=== PATIENT | female | born 1990 | race Caucasian/White ===

== ENCOUNTER 2021-07-15 07:46 | Emergency (ER) | payer OTHER, SELFPAY ==
--- NOTE | ~2021-07-15 | CT_ITS ---
EXAMINATION: CTA brain carotid DATE: 07/15/2021 09:10 INDICATION: Right-sided headache TECHNIQUE: Computed tomographic angiography (CTA) of the head was performed without and with 100 mL O mnipaque-350 intravenous contrast. CTA of the neck was performed with intravenous contrast. The dose- length product was 1529.92 mGy-cm. Maximum intensity projection and volume rendered 3D-reconstruction s were created by the technologist on a separate workstation. Automated exposure control and iterativ e reconstruction technique were employed. COMPARISON: None. FINDINGS: HEAD CTA: There is no intracranial hemorrhage, acute infarction, or abnormal mass lesion. The ventric les are normal. There is no abnormal mass effect or midline shift. The alfredo-white matter differentiat ion is normal. The basal cisterns are patent. The orbits are normal. The paranasal sinuses, mastoids and calvarium are normal. There is no significant stenosis of the basilar artery or posterior cerebral arteries. There is no si gnificant stenosis of the intracranial internal carotid arteries or the anterior or middle cerebral a rteries. The anterior communicating artery and right posterior communicating artery is normal. A left posterior communicating arteries hypoplastic There is no aneurysm. NECK CTA: The thyroid gland is unremarkable. The submandibular and parotid glands are symmetric. Ther e is no lymphadenopathy. There are no masses identified. The airway is unremarkable. There are no oss eous abnormalities. The superior mediastinum is unremarkable. There is 0% stenosis of the proximal right internal carotid artery relative to normal distal artery l umen diameter (NASCET criteria). There is 0% stenosis of the proximal left internal carotid artery re lative to normal distal artery lumen diameter. IMPRESSION: 1. No acute intracranial abnormality. Unremarkable head CTA. 2. 0% stenosis of the proximal right internal carotid artery relative to normal distal artery lumen d iameter (NASCET criteria). 3. 0% stenosis of the proximal left internal carotid artery relative to normal distal artery lumen di ameter. Reviewed, dictated and finalized at location A. IMPRESSION: 1. No acute intracranial abnormality. Unremarkable head CTA. 2. 0% stenosis of the proximal right internal carotid artery relative to normal distal artery lumen diameter (NASCET criteria). 3. 0% stenosis of the proximal left internal carotid artery relative to normal distal artery lumen diameter.
[2021-07-15 07:51] VITALS: BP 125/83; PULSE 71; RESP 20; TEMP 36.7; O2SAT 98
[2021-07-15 07:53] VITALS: BP 125/83; PULSE 86; RESP 18; O2SAT 99
--- NOTE | 2021-07-15 07:59 | ED.HA ---
HPI - Headache General Chief Complaint: Headache Stated Complaint: headache x5 days Time Seen by Provider: 07/15/21 07:49 Source: RN notes reviewed History of Present Illness HPI Narrative: Patient presents emergency department from home for headache. Patient states that headache initially began approximately 5 days ago. Patient states that the headache was initially intermittent but is been constant over the past 2 days pain is located over the right frontal forehead into the right bapt[place] and does not radiate described as aching in nature there is no pain anywhere else in the head nothing makes the pain better or worse she states she did take Tylenol for the pain this morning she denies any fevers or chills, vision changes, ear pain, rhinorrhea sore throat chest pain shortness of breath nausea vomiting or any other symptoms patient did receive her second [place] vaccination the day before the headache started Related Data Home Medications Medication Instructions Recorded Confirmed spironolactone 50 mg PO DAILY 07/15/21 07/15/21 Allergies Allergy/AdvReac Type Severity Reaction Status Date / Time clarithromycin Allergy Unknown Unknown Verified 07/15/21 07:53 clindamycin Allergy Unknown Unknown Verified 07/15/21 07:53 erythromycin base Allergy Unknown Unknown Verified 07/15/21 07:53 Sulfa (Sulfonamide Allergy Unknown Unknown Verified 07/15/21 07:53 Antibiotics) Review of Systems Review of Systems: Gen.: Denies fevers or chills Eyes: Denies eye pain or visual change ENT: Denies congestion Respiratory: Denies shortness of breath or cough CV: Denies chest pain or palpitations GI: Denies abdominal pain nausea, emesis or diarrhea Musculoskeletal: Denies back pain or muscle pain Neuro: See HPI Skin: Denies rash Except as documented, all other systems reviewed and negative [facility] Past Medical History Medical History (Updated 07/15/21 @ 11:51 by Sourav Gonzalez DO) Patient denies significant medical history Family History Family History (Updated 06/17/18 @ 14:52 by DOCTOR UNKNOWN) Grandparent Diabetes mellitus Acute myocardial infarction Social History Social History Smoking status: Never smoker Alcohol intake: current Exam Narrative: APPEARANCE: No acute distress, nontoxic, resting in bed HEENT: Normocephalic, atraumatic, OMM, TMs clear bilaterally EYES: PERRL, EOMI NECK: Supple, nontender, full range of motion without pain, no meningismus RESPIRATORY: No respiratory distress, clear to auscultation bilaterally with no rhonchi wheezing or rales CARDIOVASCULAR: RRR s murmur ABDOMINAL: Soft, nontender, nondistended MUSCULOSKELETAL: Moves all extremities. No clubbing, cyanosis or edema. NEURO: A and O ?4, following commands, speech normal, no facial droop,muscle strength 5 out of 5 bilateral upper and lower extremities SKIN:: Warm, dry. Normal Color PSYCHIATRIC: Normal affect/mood Course Course Emergency Course: Patient still has headache following Toradol she taken Tylenol home will give small amount of morphine States headache is greatly improved at this time ready for discharge Discussed with patient results of workup and diagnosis. Discussed need for follow-up with primary care, proper use of medication, and reasons to return to the emergency department. Patient understands and agrees to current treatment plan Vital Signs Vital signs: Vital Signs Temperature 98.0 F 07/15/21 07:51 Pulse Rate 71 07/15/21 07:51 Respiratory Rate 20 07/15/21 07:51 Blood Pressure 125/83 07/15/21 07:51 Pulse Oximetry 98 07/15/21 07:51 Temperature 98.0 F 07/15/21 07:51 Pulse Rate 60 07/15/21 10:57 Respiratory Rate 20 07/15/21 10:57 Blood Pressure 123/92 H 07/15/21 10:57 Pulse Oximetry 100 07/15/21 10:57 MDM - Headache MDM Narrative Medical decision making narrative: Patient's headache was not sudden or maximal in onset.
[2021-07-15] MEDS: KETOROLAC 30 MG/ML VIAL (*BKC) IV PUSH (08:11)
[2021-07-15] MEDS: SODIUM CHLORIDE 0.9% IV 1,000 ML 999 ML IV CONT ×2 (08:11→10:29)
[2021-07-15 08:19] LABS: Basophils Percent Auto 0.7 % (0.2-1.2); Eosinophils Absolute Auto 0.2 K/mm3 (0-0.3); Eosinophils Percent Auto 3.4 % (0-4.4); Hematocrit 37.7 % (37.0-47.0); Hemoglobin 12.6 g/dL (12.0-15.0); Immature Granulocyte Absolute 0.01 K/mm3 (0.00-0.031); Immature Granulocyte Percent A 0.2 % (0-0.5); Lymphocytes Absolute Auto 2.57 K/mm3 (0.9-3.2); Lymphocytes Percent Auto 44.2 % (18.3-44.2); Mean Corpuscular HGB Conc 33.4 g/dl (32-36); Mean Corpuscular Hemoglobin 30.7 pg (26-34); Mean Corpuscular Volume 91.7 fl (80-100); Mean Platelet Volume 9.5 fl (7.4-10.4); Monocytes Absolute Auto 0.3 K/mm3 (0.1-0.6); Monocytes Percent Auto 5.5 % (2.6-8.5); Neutrophils Absolute Auto 2.7 K/mm3 (1.3-6.7); Platelet Count Result 215 k/mm3 (150-375); Red Blood Count 4.11 M/mm3 (4.2-5.4); Red Cell Distribution Width 11.7 % (11.5-14.5); White Blood Count 5.8 K/mm3 (4.5-10.0)
[2021-07-15 08:30] LABS: INR 0.9; Partial Thromboplastin Time 22.7 SECONDS (22.3-36.8); Prothrombin Time 12.5 Seconds (11.1-14.7)
[2021-07-15 08:33] LABS: Alanine Aminotransferase 16 U/L (4-35); Albumin Level 4.2 g/dL (3.5-5.1); Alkaline Phosphatase 36 U/L (38-126); Anion Gap 9 mmol/L (8-16); Aspartate Amino Transferase 22 U/L (14-36); Bilirubin,Total 0.6 mg/dL (0.2-1.3); Blood Urea Nitrogen 8 mg/dL (7-17); Calcium 8.8 mg/dL (8.4-10.2); Carbon Dioxide 26 mmol/L (22-30); Chloride 104 mmol/L (98-107); Estimated CRCL calculation 128 ml/min; Estimated Glomerular Filt Rate > 60; Glucose 90 mg/dL (65-110); Potassium 4.1 mmol/L (3.4-5.0); Sodium 139 mmol/L (137-145)
[2021-07-15 08:43] VITALS: BP 108/69; PULSE 60; RESP 20; O2SAT 100
[2021-07-15] MEDS: MORPHINE SULFATE (*CRX) 2 MG/ML INJ IV PUSH (10:30)
[2021-07-15] MEDS: diphenhydrAMINE HCl INJ 50 MG/ML VIAL 25 MG IV PUSH (10:30)
[2021-07-15 10:57] VITALS: BP 123/92; PULSE 60; RESP 20; O2SAT 100
[2021-07-15 11:38] VITALS: BP 108/69; PULSE 88; RESP 18; O2SAT 100
[2021-07-15 12:10] VITALS: BP 108/69; PULSE 88; RESP 18; TEMP 36.9; O2SAT 100
== END 2021-07-15 12:10 | disposition home or self-care (01) ==
PROVIDERS: Emergency Provider Emergency Medicine; PCP Physician Assistant
DX: R51.9 Headache, unspecified (principal)
CPT/HCPCS: 36415; 70496; 70498; 80053; 81025; 85025; 85610; 85730; 96361; 96374; 96375; 99284; J1200; J1885; J2270; J7030; Q9967

== ENCOUNTER 2023-09-12 12:23 | Emergency (ER) | payer BC, SELFPAY ==
[2023-09-12] VITALS (7 sets, daily range): BP systolic 122–151; BP diastolic 74–104; PULSE 81; RESP 18; TEMP 36.4; O2SAT 98–100
--- NOTE | ~2023-09-12 | CT_ITS ---
EXAMINATION: CT thoracic spine wo con DATE: 09/12/2023 15:31 INDICATION: Mid thoracic spine pain TECHNIQUE: Computed tomography (CT) of the thoracic spine was performed without intravenous contrast. Automated exposure control and iterative reconstruction technique were employed. The dose-length pro duct was 1414.37 mGy-cm. COMPARISON: None FINDINGS: 6 degrees mid thoracic dextrocurvature. Sagittal alignment is normal. Vertebral body heights are norm al. No fracture. Multilevel mild disc height loss from T3-T4 through T12-L1. No central canal stenosi s. Multilevel minimal to mild thoracic facet osteoarthritis with mild neural foraminal stenosis on th e left at T11-T12. Paravertebral soft tissues are unremarkable. 2 mm nonobstructing stone at the uppe r pole of the left kidney. Visualized portion of the lungs are clear. IMPRESSION: 1. 6 degrees thoracic dextrocurvature with mild spondylosis. No acute osseous abnormality. 2. 2 mm nonobstructing left renal stone. Reviewed, dictated and finalized at location A. [employer]TER CHIEF INSPECTOR IMPRESSION: 1. 6 degrees thoracic dextrocurvature with mild spondylosis. No acute osseous a bnormality. 2. 2 mm nonobstructing left renal stone.
--- NOTE | 2023-09-12 12:48 | ECG_ITS ---
Measurements Intervals [place] Rate: 71 P: 15 ND: 162 QRS: 54 QRSD: 79 T: 25 QT: 372 QTc: 404 Interpretive Statements SINUS RHYTHM CANNOT RULE OUT SEPTAL INFARCT, AGE INDETERMINATE ABNORMAL ECG NO PREVIOUS ECG AVAILABLE FOR COMPARISON Electronically Signed On 09-12-2023 13:02:48 [employer] E[employer]IST by Hans Sauceda D.O.
[2023-09-12 13:07] LABS: Basophils Percent Auto 0.5 % (0.2-1.2); Eosinophils Absolute Auto 0.1 K/mm3 (0-0.3); Hematocrit 41.6 % (37.0-47.0); Hemoglobin 13.3 g/dL (12.0-15.0); Immature Granulocyte Absolute 0.02 K/mm3 (0.00-0.031); Immature Granulocyte Percent A 0.3 % (0-0.5); Lymphocytes Absolute Auto 2.01 K/mm3 (0.9-3.2); Mean Corpuscular Hemoglobin 29.9 pg (26-34); Mean Corpuscular Volume 93.5 fl (80-100); Mean Platelet Volume 9.5 fl (7.4-10.4); Monocytes Absolute Auto 0.3 K/mm3 (0.1-0.6); Monocytes Percent Auto 4.9 % (2.6-8.5); Neutrophils Absolute Auto 3.5 K/mm3 (1.3-6.7); Neutrophils Percent Auto 59.3 % (45.5-73.1); Platelet Count Result 265 k/mm3 (150-375); Red Blood Count 4.45 M/mm3 (4.2-5.4); Red Cell Distribution Width 12.6 % (11.5-14.5); White Blood Count 5.9 K/mm3 (4.5-10.0)
[2023-09-12 13:19] LABS: Alanine Aminotransferase 29 U/L (6-35); Albumin Level 4.9 g/dL (3.5-5.1); Alkaline Phosphatase 58 U/L (38-126); Anion Gap 11 mmol/L (8-16); Aspartate Amino Transferase 26 U/L (14-36); Bilirubin,Total 0.6 mg/dL (0.2-1.3); Blood Urea Nitrogen 14 mg/dL (7-17); Calcium 9.4 mg/dL (8.4-10.2); Carbon Dioxide 27 mmol/L (22-30); Chloride 103 mmol/L (98-107); Estimated CRCL calculation 119 ml/min; Estimated Glomerular Filt Rate > 60; Glucose 93 mg/dL (65-110); Potassium 4.1 mmol/L (3.4-5.0); Sodium 141 mmol/L (137-145)
--- NOTE | 2023-09-12 14:10 | ED.DIZZY ---
HPI - Dizziness General Chief Complaint: Dizziness Stated Complaint: vertigo and back pain Time Seen by Provider: 09/12/23 13:47 Source: patient Limitations: no limitations History of Present Illness HPI Narrative: This is a 32-year-old female who presents to the ED with chief complaint of dizziness beginning this morning. Patient reports that she also has a back pain following an injury that occurred yesterday. She was seen by her chiropractor today who told her to come here for the dizziness. Patient reports 2 distinct episodes of room spinning that lasted a couple minutes each. She reports that whenever she rolled to her left side she had 1 episode earlier. Today she states she also had an episode of this When she is up from bed. denies fevers, chills, headache, neck pain, syncope, chest pain, palpitation, shortness of breath, cough, numbness, weakness, speech change or vision change. patient states she is not currently having any vertigo symptoms that symptoms have resolved. Still having the back pain due to the injury. Related Data Home Medications Medication Instructions Recorded Confirmed spironolactone 50 mg tablet 50 mg PO DAILY 07/15/21 07/15/21 Allergies Allergy/AdvReac Type Severity Reaction Status Date / Time clarithromycin Allergy Unknown Unknown Verified 09/12/23 12:47 clindamycin Allergy Unknown Unknown Verified 09/12/23 12:47 erythromycin base Allergy Unknown Unknown Verified 09/12/23 12:47 Sulfa (Sulfonamide Allergy Unknown Unknown Verified 09/12/23 12:47 Antibiotics) Review of Systems Review of Systems: All systems as dictated in [facility] Past Medical History Medical History (Updated 09/12/23 @ 16:42 by Doug Segura PA-C) Patient denies significant medical history Family History Family History (Updated 06/17/18 @ 14:52 by DOCTOR UNKNOWN) Grandparent Diabetes mellitus Acute myocardial infarction Social History Social History Smoking status: Never smoker Alcohol intake: current Exam Narrative: GENERAL: Well-appearing, well-nourished, and in no acute distress. HEAD: Normocephalic, atraumatic. EYES: PERRLA and EOMI. ENT: Nares clear, no rhinorrhea or epistaxis. Mucous membranes moist. Oropharynx without tonsillar hypertrophy exudate or other lesions. NECK: Supple. No adenopathy or masses. CHEST: No respiratory distress. Clear to auscultation. No wheezes rales or rhonchi HEART: Regular rate and rhythm. No murmur heard. Normal peripheral pulses. ABDOMEN: Soft, nontender, nondistended, normal active bowel sounds. MSK: Normal range of motion. No edema. Mild thoracic paraspinal tenderness bilaterally. no midline tenderness throughout the spine. SKIN: Warm, dry, no rash. NEURO: Alert and oriented x3. No focal deficits. Cranial nerves 2-12 intact. She is ambulatory. Reproducible vertigo with leftward axial rotation along with sitting up in bed. PSYCH: Normal mood and affect. Course Vital Signs Vital signs: Vital Signs Temperature 97.5 F L 09/12/23 12:43 Pulse Rate 81 09/12/23 12:43 Respiratory Rate 18 09/12/23 12:43 Blood Pressure 151/104 H 09/12/23 12:43 Pulse Oximetry 100 09/12/23 12:43 Oxygen Delivery Room Air 09/12/23 12:43 Temperature 97.5 F L 09/12/23 12:43 Pulse Rate 81 09/12/23 12:43 Respiratory Rate 18 09/12/23 12:43 Blood Pressure 126/80 09/12/23 16:46 Pulse Oximetry 98 09/12/23 16:46 Oxygen Delivery Room Air 09/12/23 12:43 MDM - Dizziness MDM Narrative Medical decision making narrative: this is a 32-year-old female who presents ED with chief complaint of episodic vertigo as well as mid back pain. She had an injury a few days ago to aggravate the back. Vitals are normal. Exam reveals reproducible vertiginous symptoms with leftward rotation as well as sitting up in the bed. Neuro exam is fully intact. EKG is without acu
[2023-09-12] MEDS: MECLIZINE HCL 25 MG TABLET PO (15:35)
[2023-09-12] MEDS: ORPHENADRINE CITRATE 100 MG TABLET.ER PO (15:35)
[2023-09-12] MEDS: IBUPROFEN 600 MG TABLET PO (15:35)
== END 2023-09-12 16:52 | disposition home or self-care (01) ==
PROVIDERS: Student in an Organized Health Care Education/Training Program; Emergency Provider Physician Assistant; PCP Physician Assistant
DX: H81.10 Benign paroxysmal vertigo, unspecified ear (principal); S29.9XXA Unspecified injury of thorax, initial encounter; R94.31 Abnormal electrocardiogram [ECG] [EKG]; M47.814 Spondylosis without myelopathy or radiculopathy, thoracic region; N20.0 Calculus of kidney; X58.XXXA Exposure to other specified factors, initial encounter
CPT/HCPCS: 36415; 72128; 80053; 81025; 85025; 93005; 99284; A9270

== ENCOUNTER 2025-03-03 07:46 | Outpatient (CLI) | payer BC, SELFPAY ==
--- NOTE | 2025-03-03 | ECHO_ITS ---
Patient Info Name: Tyesha Mckinley Age: 34 years : 1990 Gender: Female Ht: 66 in Wt: 200 lbs BSA: 2.09 m2 HR: 62 bpm BP: 96 / 82 mmHg Heart Rhythm: Sinus Rhythm Technical Quality: Good Exam Date: 03/03/2025 8:18 AM Exam Location: Echo Lab Patient Status: Outpatient Admit Date: 03/03/2025 Staff Ordering Physician: NathanEloisa PA-C [place] Operator: Elham [place] RDCS Attending Provider: Eloisa Luz PA-C Exam Type: CA echo doppler color flow Study Info Indications R07.9 - Chest pain, unspecified Complete two-dimensional, color flow and Doppler transthoracic echocardiogram is performed. Summary 1. Left ventricular chamber dimension is normal. 2. Left ventricular systolic function is normal, estimated at 65-70%. 3. The left ventricular diastolic function is normal. 4. Right ventricular systolic function is normal. 5. No significant valvular disease. Left Ventricle Left ventricular chamber dimension is normal. Left ventricular systolic function is normal, estimated at 65-70%. There is no increased left ventricular wall thickness. The left ventricular diastolic function is normal. Right Ventricle Right ventricular chamber dimension is normal. Right ventricular systolic function is normal. Left Atria Left atrial chamber dimension is normal. Right Atria Right atrial chamber dimension is normal. Atrial Septum Intact interatrial septum visualized by color flow imaging. Aortic Valve The aortic valve is trileaflet. There is no aortic valve stenosis. There is trace aortic valve regurgitation. Pulmonic Valve The pulmonic valve is not well visualized. There is trace pulmonic regurgitation. Mitral Valve There is no mitral valve regurgitation. Tricuspid Valve There is trace tricuspid valve regurgitation. Pericardium/Pleural There is no pericardial effusion. Inferior Vena Cava Normal inferior vena cava with >50% collapse upon inspiration consistent with normal right atrial pressure, 3 mmHg. Aorta The aortic root size at the sinus of Valsalva is normal. Left Ventricular Outflow Tract Name Value Normal LVOT 2D LVOT Diameter 1.9 cm LVOT Doppler LVOT Peak Gradient 3 mmHg LVOT Mean Gradient 2 mmHg LVOT VTI 20 cm LVOT VTI/AV VTI Ratio 0.8 LVOT Stroke Volume 55 ml LVOT CO 11.3 l/min LVOT CI 5.4 l/min/m2 Pulmonic Valve Name Value Normal PV Doppler PV Peak Gradient 4 mmHg Mitral Valve Name Value Normal MV Doppler MV Decel Lane 180 cm/s2 MV PHT 91 ms MV Area (PHT) 2.4 cm2 4.0-5.0 MV Diastolic Function MV E Peak Velocity 56 cm/s MV A Peak Velocity 34 cm/s MV E/A 1.7 MV Decel Time 313 ms MV Annular TDI MV E/e' (Septal) 5.3 <=8.0 MV E/e' (Lateral) 3.1 <=8.0 MV E/e' (Average) 4.2 Tricuspid Valve Name Value Normal TV Regurgitation Doppler TR Peak Velocity 220 cm/s TR Peak Gradient 19 mmHg Estimated PAP/RSVP RA Pressure 3 mmHg <=5 PA Systolic Pressure 22 mmHg <36 RV Systolic Pressure 22 mmHg <36 Aorta Name Value Normal Ascending Aorta Ao Root Diameter (MM) 2.7 cm Ao Root Diam Index (MM) 1.3 cm/m2 Aortic Valve Name Value Normal AV Doppler AV Peak Velocity 111 cm/s AV Peak Gradient 5 mmHg AV Mean Gradient 3 mmHg AV VTI 25 cm AV Area (Cont Eq VTI) 2.2 cm2 >=3.0 AV Area (Cont Eq Mateo) 2.3 cm2 AV Regurgitation 2D LVOT Area 2.7 cm2 Ventricles Name Value Normal LV Dimensions 2D/MM IVS Diastolic Thickness (2D) 0.9 cm 0.6-1.0 LVID Diastole (2D) 4.5 cm 3.8-5.2 LVIW Diastolic Thickness (2D) 1.0 cm 0.6-0.9 LVID Systole (2D) 3.0 cm 2.2-3.5 LVOT Diameter 1.9 cm LV Mass (2D Cubed) 140.62 g 67.00-162.00 LV Mass Index (2D Cubed) 67 g/m2 43-95 Relative Wall Thickness (2D) 0.44 LV Fractional Shortening/Ejection Fraction 2D/MM LV Fractional Shortening (2D) 34 % 27-45 LV EF (2D Teicholz) 63 % 54-74 LV Diastolic Volume (4C MOD) 125 ml LV EF (4C MOD) 63 % LV Diastolic Volume (2C MOD) 115 ml LV EF (2C MOD) 70 % LV Diastolic Volume (BP MOD) 122 ml 46-106 LV Diastolic Volume Index (BP MOD) 58 ml/m2 29-61 LV Systolic Volume (BP MOD) 40 ml 14-42 LV Systolic Volume Index (BP MOD) 19 ml/m2 8-24 LV EF (BP MOD) 67 % 54-74 LV Diastolic Length (4C) 8.0 cm LV Systolic Length (4C) 6.5 cm LV Stroke Volume (4C MOD) 79 ml RV Dimensions 2D/MM RVID Diastole (2D) 3.7 cm 2.5-3.5 Atria Name Value Normal LA Dimensions LA Dimension (MM) 3.3 cm 2.7-3.8 LA Volume (4C A-L) 58 ml LA Volume (BP A-L) 51 ml RA Dimensions RA Area (4C) 14.4 cm2 <=18.0 Report Signatures
--- OUTSIDE RECORDS SUMMARY | 2025-03-03 07:51 | XMS_ITS | Data Portability ---
[facility] Organization [facility] Address [address] [place] [address] Care Team Providers Care Branch Logistics Supervisor Name Role Phone CODIEDAVONTE MEJIA Primary Care Provider Unavailab le Assessment No assessment recorded. Plan of Treatment Reminders Order Date Submit Date Provider Last Modified By Organization Details Last Modified Time Details Appointments None recorded. Lab CMP, serum or plasma 2024 025 [facility], [address] [place] [address], [id number], 13:12:30 CBC w/ auto diff 2024 025 [facility], [address] [place] [address], [id number], 13:12:35 lipid panel, serum 2024 025 JE[facility], [address] [place] [address], [id number], 13:12:28 cobalamin and folate panel, serum 2024 025 [facility], [address] [place] [address], [address], 13:12:31 vitamin D, 25-hydroxy , total, serum 2024 025 JE[facility], [address] [place] [address], [id number], 13:12:37 magnesium, serum or plasma 2024 025 JE[facility], [address] [facility], [facility], [place], [address], 13:12:33 HbA1c (hemoglobi n A1c), blood 2024 025 [facility], [address] [facility], [facility], [place], [address], 13:12:32 insulin, serum 2024 025 [facility], [address] [facility], [facility], [place], [address], 13:12:34 TSH + free T4, serum 2024 025 [facility], [address] [facility], [facility], [place], [address], 13:12:29 Referral None recorded. Procedures None recorded. Surgeries None recorded. Imaging exercise stress test 2024 025 [facility] (Cardiology & Em[facility]), [address] [place] [address] [place] [address], [id number], 16:20:37 US, echocardio gram, transthora cic, complete, w/ color flow 2024 025 [facility] (Cardiology & Em[facility]), [address] [place] [address] [address], [address], 5 11:18:51 electrocar diogram 2024 025 [email or web address] In-Office Order, Internal Use Only DO Not Attach Compendium DO Not Attach Compendium, Do Not Delete/merge, [id number] 16:04:41 Medication Orders None recorded. Patient TargetsNo targets recorded. Patient InstructionsNo instructions recorded. Reason for Referral None Reported. Results Created Date Observation Date Name Description Value Unit Range Abnormal Flag Note LastModifiedBy Organization Detail LastModifiedTime 02/25/20 25 02/25/2025 LIPID PANEL W/ CHOL/ HDL RATIO cholesterol, total 233 mg/dL 100-19 9 above high normal Not Available [facility] ([facility]) [address] [facility], [place], [address], 02/25/2025 13:12:28 02/25/20 25 02/25/2025 LIPID PANEL W/ CHOL/ HDL RATIO triglyceride s 176 mg/dL 0-149 above high normal Not Available [facility] ([facility]) [address] [place], [address], 02/25/2025 13:12:28 02/25/20 25 02/25/2025 LIPID PANEL W/ CHOL/ HDL RATIO HDL cholesterol 47 mg/dL >39 Not Available [facility] ([facility]) [address] [place], [address], 02/25/2025 13:12:28 02/25/20 25 02/25/2025 LIPID PANEL W/ CHOL/ HDL RATIO VLDL cholesterol jaimee 32 mg/dL 5-40 Not Available [facility] ([facility]) [address] [place], [address], 02/25/2025 13:12:28 02/25/20 25 02/25/2025 LIPID PANEL W/ CHOL/ HDL RATIO LDL chol calc ([facility]) 154 mg/dL 0-99 above high normal Not Available [facility] ([facility]) [address] [place], [address], 02/25/2025 13:12:28 02/25/20 25 02/25/2025 LIPID PANEL W/ CHOL/ HDL RATIO T. chol/HDL ratio 5.0 ratio 0.0-4. 4 above high normal T. Chol/ HDL Ratio Men Women 1/2 Avg.R isk 3.4 3.3 Avg.R isk 5.0 4.4 2X Avg.R isk 9.6 7.1 3X Avg.R isk 23.4 11.0 Not Available [facility] ([facility]) [address] [facility] [place], [address], 02/25/2025 13:12:28 02/25/20 25 02/25/2025 TSH+F REE T4 TSH 1.430 uIU/m L 0.450- 4.500 Not Available [facility] ([facility]) [address] [facility] [place], [address], 02/25/2025 13:12:29 02/25/20 25 02/25/2025 TSH+F REE T4 T4,free(dire ct) 1.09 NG/dL 0.82-1 .77 Not Available [facility] ([facility]) [address] [facility] [place], [address], 02/25/2025 13:12:29 02/25/20 25 02/25/2025 COMP. METAB OLIC PANEL (14) glucose 90 mg/dL 70-99 Not Available [facility] ([facility]) [address] [facility] [place], [address], 02/25/2025 13:12:30 02/25/20 25 02/25/2025 COMP. METAB OLIC PANEL (14) BUN 13 mg/dL 6-20 Not Available [facility] ([facility]) [address] [facility] [place], [address], 02/25/2025 13:12:30 02/25/20 25 02/25/2025 COMP. METAB OLIC PANEL (14) creatinine 0.69 mg/dL 0.57-1 .00 Not Available [facility] ([facility]) [address] [facility] [place], [address], 02/25/2025 13:12:30 02/25/20 25 02/25/2025 COMP. METAB OLIC PANEL (14) eGFR 118 mL/mi n/1.7 3 >59 Not Available [facility] ([facility]) [address] [facility] [place], [address], 02/25/2025 13:12:30 02/25/20 25 02/25/2025 COMP. METAB OLIC PANEL (14) BUN/creatini ne ratio 19 9-23 Not Available [facility] ([facility]) [address] [facility], [place], [address], 02/25/2025 13:12:30 02/25/20 25 02/25/2025 COMP. METAB OLIC PANEL (14) sodium 140 mmol/ L 134-14 4 Not Available [facility] ([facility]) [address] [facility], [place], [address], 02/25/2025 13:12:30 02/25/20 25 02/25/2025 COMP. METAB OLIC PANEL (14) potassium 4.8 mmol/ L 3.5-5. 2 Not Available [facility] ([facility]) [address] [facility], [place], [address], 02/25/2025 13:12:30 02/25/20 25 02/25/2025 COMP. METAB OLIC PANEL (14) chloride 101 mmol/ L 96-106 Not Available [facility] ([facility]) [address] [facility], [place], [address], 02/25/2025 13:12:30 02/25/20 25 02/25/2025 COMP. METAB OLIC PANEL (14) carbon dioxide, total 24 mmol/ L 20-29 Not Available [facility] ([facility]) [address] [place], [address], 02/25/2025 13:12:30 02/25/20 25 02/25/2025 COMP. METAB OLIC PANEL (14) calcium 9.5 mg/dL 8.7-10 .2 Not Available [facility] ([facility]) [address] [facility], [place], [address], 02/25/2025 13:12:30 02/25/20 25 02/25/2025 COMP. METAB OLIC PANEL (14) protein, total 7.6 g/dL 6.0-8. 5 Not Available [facility] ([facility]) [address] [place], [address], 02/25/2025 13:12:30 02/25/20 25 02/25/2025 COMP. METAB OLIC PANEL (14) albumin 4.9 g/dL 3.9-4. 9 Not Available [facility] ([facility]) [address] [place], [address], 02/25/2025 13:12:30 02/25/20 25 02/25/2025 COMP. METAB OLIC PANEL (14) globulin, total 2.7 g/dL 1.5-4. 5 Not Available [facility] ([facility]) [address] [place], [address], 02/25/2025 13:12:30 02/25/20 25 02/25/2025 COMP. METAB OLIC PANEL (14) bilirubin, total 0.4 mg/dL 0.0-1. 2 Not Available [facility] ([facility]) [address] [place], [address], 02/25/2025 13:12:30 02/25/20 25 02/25/2025 COMP. METAB OLIC PANEL (14) alkaline phosphatase 78 IU/L 44-121 Not Available [facility] ([facility]) [address] [place], [address], 02/25/2025 13:12:30 02/25/20 25 02/25/2025 COMP. METAB OLIC PANEL (14) AST (SGOT) 16 IU/L 0-40 Not Available [facility] ([facility]) [address] [place], [address], 02/25/2025 13:12:30 02/25/20 25 02/25/2025 COMP. METAB OLIC PANEL (14) ALT (SGPT) 19 IU/L 0-32 Not Available [facility] ([facility]) [address] [place], [address], 02/25/2025 13:12:30 02/25/20 25 02/25/2025 VITAM IN B12 AND FOLAT E vitamin B12 543 pg/mL 232-12 45 Not Available [facility] ([facility]) [address] [place], [address], 02/25/2025 13:12:31 02/25/20 25 02/25/2025 VITAM IN B12 AND FOLAT E folate (folic acid), serum 15.3 NG/mL >3.0 A serum folat e bill ntrat ion of less than 3.1 ng/mL is consi dered to repre sent clini jaimee defic iency . Not Available [facility] ([facility]) [address] [place], [address], 02/25/2025 13:12:31 02/25/20 25 02/25/2025 HEMOG LOBIN A1C hemoglobin A1C 5.2 % 4.8-5. 6 Predi abete s: 5.7 - 6.4 Diabe kevin: >6.4 Glyce francis contr ol for adult s with diabe kevin: <7.0 Not Available [facility] ([facility]) [address] [place], [address], 02/25/2025 13:12:32 02/25/20 25 02/25/2025 MAGNE SIUM magnesium 2.0 mg/dL 1.6-2. 3 Not Available [facility] ([facility]) [address] [place], [address], 02/25/2025 13:12:33 02/25/20 25 02/25/2025 INSUL IN insulin 16.1 uIU/m L 2.6-24 .9 Not Available [facility] ([facility]) [address] [place], [address], 02/25/2025 13:12:34 02/25/20 25 02/25/2025 CBC WITH DIFFE RENTI AL/PL ATELE T WBC 5.3 x10e3 /uL 3.4-10 .8 Not Available [facility] ([facility]) [address] [facility], [place], [address], 02/25/2025 13:12:35 02/25/20 25 02/25/2025 CBC WITH DIFFE RENTI AL/PL ATELE T RBC 4.90 x10e6 /uL 3.77-5 .28 Not Available [facility] ([facility]) [address] [place], [address], 02/25/2025 13:12:35 02/25/20 25 02/25/2025 CBC WITH DIFFE RENTI AL/PL ATELE T hemoglobin 14.7 g/dL 11.1-1 5.9 Not Available [facility] ([facility]) [address] [facility], [place], [address], 02/25/2025 13:12:35 02/25/20 25 02/25/2025 CBC WITH DIFFE RENTI AL/PL ATELE T hematocrit 45.8 % 34.0-4 6.6 Not Available [facility] ([facility]) [address] [place], [address], 02/25/2025 13:12:35 02/25/20 25 02/25/2025 CBC WITH DIFFE RENTI AL/PL ATELE T MCV 94 fL 79-97 Not Available [facility] ([facility]) [address] [place], [address], 02/25/2025 13:12:35 02/25/20 25 02/25/2025 CBC WITH DIFFE RENTI AL/PL ATELE T MCH 30.0 pg 26.6-3 3.0 Not Available [facility] ([facility]) [address] [place], [address], 02/25/2025 13:12:35 02/25/20 25 02/25/2025 CBC WITH DIFFE RENTI AL/PL ATELE T MCHC 32.1 g/dL 31.5-3 5.7 Not Available [facility] ([facility]) [address] [facility], [place], [address], 02/25/2025 13:12:35 02/25/20 25 02/25/2025 CBC WITH DIFFE RENTI AL/PL ATELE T RDW 11.8 % 11.7-1 5.4 Not Available [facility] ([facility]) [address] [facility], [place], [address], 02/25/2025 13:12:35 02/25/20 25 02/25/2025 CBC WITH DIFFE RENTI AL/PL ATELE T platelets 231 x10e3 /uL 150-45 0 Not Available [facility] ([facility]) [address] [facility], [place], [address], 02/25/2025 13:12:35 02/25/20 25 02/25/2025 CBC WITH DIFFE RENTI AL/PL ATELE T neutrophils 63 % notest ab. Not Available [facility] ([facility]) [address] [facility], [place], [address], 02/25/2025 13:12:35 02/25/20 25 02/25/2025 CBC WITH DIFFE RENTI AL/PL ATELE T lymphs 27 % notest ab. Not Available [facility] ([facility]) [address] [facility], [place], [address], 02/25/2025 13:12:35 02/25/20 25 02/25/2025 CBC WITH DIFFE RENTI AL/PL ATELE T monocytes 7 % notest ab. Not Available [facility] ([facility]) [address] [facility], [place], [address], 02/25/2025 13:12:35 02/25/20 25 02/25/2025 CBC WITH DIFFE RENTI AL/PL ATELE T eos 2 % notest ab. Not Available [facility] ([facility]) [address] [facility], [place], [address], 02/25/2025 13:12:35 02/25/20 25 02/25/2025 CBC WITH DIFFE RENTI AL/PL ATELE T basos 1 % notest ab. Not Available [facility] ([facility]) [address] [facility], [place], [address], 02/25/2025 13:12:35 02/25/20 25 02/25/2025 CBC WITH DIFFE RENTI AL/PL ATELE T neutrophils (absolute) 3.4 x10e3 /uL 1.4-7. 0 Not Available [facility] ([facility]) [address] [facility], [place], [address], 02/25/2025 13:12:35 02/25/20 25 02/25/2025 CBC WITH DIFFE RENTI AL/PL ATELE T lymphs (absolute) 1.5 x10e3 /uL 0.7-3. 1 Not Available [facility] ([facility]) [address] [facility], [place], [address], 02/25/2025 13:12:35 02/25/20 25 02/25/2025 CBC WITH DIFFE RENTI AL/PL ATELE T monocytes(ab solute) 0.4 x10e3 /uL 0.1-0. 9 Not Available [facility] ([facility]) [address] [place], [address], 02/25/2025 13:12:35 02/25/20 25 02/25/2025 CBC WITH DIFFE RENTI AL/PL ATELE T eos (absolute) 0.1 x10e3 /uL 0.0-0. 4 Not Available [facility] ([facility]) [address] [place], [address], 02/25/2025 13:12:35 02/25/20 25 02/25/2025 CBC WITH DIFFE RENTI AL/PL ATELE T baso (absolute) 0.0 x10e3 /uL 0.0-0. 2 Not Available [facility] ([facility]) [address] [facility], [place], [address], 02/25/2025 13:12:35 02/25/20 25 02/25/2025 CBC WITH DIFFE RENTI AL/PL ATELE T immature granulocytes 0 % notest ab. Not Available [facility] ([facility]) [address] [facility], [place], [address], 02/25/2025 13:12:35 02/25/20 25 02/25/2025 CBC WITH DIFFE RENTI AL/PL ATELE T immature grans (abs) 0.0 x10e3 /uL 0.0-0. 1 Not Available [facility] ([facility]) [address] [facility], [place], [address], 02/25/2025 13:12:35 02/25/2002/25/2025 VITAM IN D, 25-HY DROXY vitamin D, 25-hydroxy 37.8 NG/mL 30.0-1 00.0 Vitam in D defic iency has been defin ed by the Insti tute of Medic ine and an Endoc rine Socie ty pract ice guide line as a level of serum 25-OH vitam in D less than 20 ng/mL (1,2) . The Endoc rine Socie ty went on to furth er defin e vitam in D insuf ficie ncy as a level betwe en 21 and 29 ng/mL (2). 1. IOM (Inst itute of Medic ine). 2010. Dieta ry refer ence mona es for calci um and D. Leslie pritchett [place]: The Natio nal [facility] Press . 2. Anthony wilkerson [place], [place]ink[place], Bisch off-F errar i JACOBO, et al. Evalu ation , treat ment, and preve ntion of vitam in D defic iency : an Endoc rine Socie ty clini jaimee pract ice guide line. JCEM. 2010; 96(7) :1911 -30. Not Available [facility] ([facility]) [address], [place], [address], 02/25/2025 13:12:37 02/26/20 25 02/25/2025 elect malik shaffergr am No observ ation record ed. JEFF In-Office Order Internal Use Only DO Not Attach Compendium DO Not Attach Compendium, Do Not Delete/merge, [id number] 02/25/2025 16:32:54 Result Notes None recorded. Problems Name Problem SNOMED Code Status Onset Date Resolution Date Notes Provider Name and Address Organization Details Recorded Time Body mass index 30+ - obesity 741833708 Active 025 Roro Guerra [place] null, [place] [facility] 14:54:07 Problem Notes None recorded. Procedures Surgical History Date Name Laterality Status Provider Name and Address Organization Details Recorded Time Tonsillectomy completed Roro Guerra [place] [facility] 02/17/2025 16:08:33 Imaging Results Imaging Date Name Status LastModified by Organization Details LastModified Time 02/25/2025 electrocardiogram completed JEFF In-Offi ce Order Internal Use Only DO Not Attach Compendium DO Not Attach Compendium, Do Not Delete/merge, [id number] 02/25/2025 16:32:54 Procedure Notes None recorded. Medical Equipment None Reported. Medications Name Sig Start Date Stop Date Status Note LastModified by Organization Details LastModified Time multivitamin active OTC Not Available Not Available Not Available Lo Loestrin Fe 1 mg-10 mcg (24)/10 mcg (2) tablet TAKE 1 TABLET BY MOUTH DAILY active Not Available Not Available No t Available Vitals Date Recorded Body weight Body mass index (BMI) Body height Respiratory rate Oxygen saturation Oxygen saturation in Arterial blood by Pulse oximetry Heart rate Systolic blood pressure Diastolic blood pressure Provider Name and Address Organization Details Last Updated DateTime 5 20218.8 1 g 33.5 kg/m2 168.28 cm 18 /min 98 % 98 % 89 /min 122 mm[Hg] 80 mm[Hg] Roro Guerra MA [facility] 14:55:27 Social History Question Answer Notes LastModified by Organizat ion Details LastModified Time Tobacco Smoking Status Never Smoker Roro Guerra MA null, [facility] 02/17/2025 16:09:38 Do You Have An Advance Directive? No Information not available 02/17/2025 What Is Your Level Of Alcohol Consumption? Occasional Information not available 02/17/2025 Are You Blind Or Do You Have Difficulty Seeing? Yes Contcats/g lasses Information not available 02/17/2025 What Is Your Level Of Caffeine Consumption? Moderate Coffee Information not available 02/17/2025 In The 14 Days Before Symptom Onset, Have You Had Close Contact With A Laboratory-confir med COVID-19 While That Case Was Ill? No Information not available 02/17/2025 In The 14 Days Before Symptom Onset, Have You Had Close Contact With A Person Who Is Under Investigation For COVID-19 While That Person Was Ill? No Information not available 02/17/2025 Have You Been To An Area Known To Be High Risk For COVID-19? No Information not available 02/17/2025 Are You Currently Employed? Yes Information not available 02/17/2025 Are You Deaf Or Do You Have Serious Difficulty Hearing? No Information not available 02/17/2025 What Type Of Diet Are You Following? REGULAR Information not available 02/17/2025 Are There Any Guns Present In Your Home? No Information not available 02/17/2025 What Was The Date Of Your Most Recent Tobacco Screening? 02/17/2025 Information not available 02/17/2025 What Is Your Relationship Status? Information not available 02/17/2025 Do You Use Your Seat Belt Or Car Seat Routinely? Yes Information not available 02/17/2025 Do You Have Smoke And Carbon Monoxide Detectors In Your Home? Yes Information not available 02/17/2025 Do You Use Any Illicit Or Recreational Drugs? No Information not available 02/17/2025 Do You Use Sunscreen Routinely? Yes Information not available 02/17/2025 Has Tobacco Cessation Counseling Been Provided? No Information not available 02/17/2025 Do You Or Have You Ever Used Any Other Forms Of Tobacco Or Nicotine? No Information not available 02/17/2025 Sex: Unknown Functional Status Question Answer Note LastModified by Organizat ion Details LastModified Time Are you able to care for yourself? Yes Information not available 02/17/2025 What is your exercise level? Occasional Information not available 02/17/2025 Mental Status None recorded. Family History Nothing Reported. Medical History Condition Response Coronary Artery Disease N Other N High Blood Pressure N Atrial Fibrillation N Kidney or Bladder Problems N Thyroid Problems N GI Problems N Depression N COPD N Blood Clots N Have you had a mammogram in the last yea r? N Skin Problems N Anemia N Heart Attack (MD) N Anxiety Disorder N Diabetes N Muscle, Joint, or Bone Problems N Seizures/Epilepsy N Have you had a colonoscopy in the last 1 0 years? N Acid Reflux (GERD) N Cancer N Stroke N Asthma N Allergies N Have you had a PSA blood test in the las t year? N High Cholesterol N Hepatitis N Liver Disease N Headaches N Heart Failure N Osteoporosis N Gynecological History Statement/Question Response Menses Monthly Y Duration of Flow (days) Current Control Method BCPs Obstetrics History GPAL:G 2 P 2 0 0 2 Type Value Full Term 2 Induced 0 Spontaneous 0 Premature 0 Living 2 Total 2 Past Encounters Encounter ID Performer Location Encounter Start Date Encounter Closed Date Diagnosis/Indication Diagnosis SNOMED-CT Code Diagnosis ICD10 Code Diagnosis Note [id number] Ramo Medellin MD [facility] [address] [place] [address] 02/17/2025 14:33:09 02/17/2025 16:08:21 Body mass index 30+ - obesity 730972262 Z68.33 Atypical chest pain 1025 00002 R07.89 EKG in the office is stable with normal sinus rhythm at a heart rate of 71. Because she does have an atypical chest pain that is often times exertional in nature on the left side of the chest we will refer her for a routine treadmill stress test and also a complete echo Doppler. Check routine labs fasting Cholesterol screening 27 6883500 Z13.220 Diabetes m ellitus screening 066369165 Z13.1 Long-term current use of drug therapy 679298820 Z79.899 Fatigue 37254305 R53.83 Health Concerns Section Related Observation LastModified by Organization Detai ls LastModified Time None Recorded Concern Status LastModified by Organization Details LastModified Time None Recorded Advance Directives Directive N: Payers Encounter Date Sequence Insurance Name Policy Number Policy Carmen Covered Member ID Carmen Member ID Guarantor Name 02/17/2025 1 [place] [id number] Tyesha Mckinley [id number] Tyesha Mckinley Notes Date Note Type Note Provider Name and Address Organization Details Recorded Time 02/17/2025 text/html Angina/Chest PainReported bypatient.Location :left chest; midsternal Quality:pressure;h eaviness Severity:moderate Duration:lasts minutes Onset/Timing:start ed 5weeks ago Context:exertional Alleviating Factors:relieved with rest Aggravating Factors:worse with activity Associated Symptoms:no dyspnea; no decrease in exercise capacity; no fatigue; no resting episodes; no associated palpitations; no associated dizziness GUSTAVO Jensen Attn: Accounting,[address] [facility], [place], [address], [facility] 02/25/2025 16:04:59 OBGyn Episode No OBEpisode recorded.
== END 2025-03-03 07:47 | disposition home or self-care (01) ==
LOC: ANHCARD 07:48
PROVIDERS: PCP Physician Assistant; Visit Provider Physician Assistant
DX: R07.89 Other chest pain (principal)
CPT/HCPCS: 93306

== ENCOUNTER 2025-03-04 11:06 | Outpatient (CLI) | payer BC, SELFPAY ==
--- NOTE | 2025-03-04 | EST_ITS ---
Patient Info Name: Tyesha Mckinley Age: 34 years : 1990 Gender: Female Ht: 66 in Wt: 200 lbs BSA: 2.09 m2 Exam Date: 03/04/2025 11:18 AM Exam Location: Echo Lab Patient Status: Outpatient Admit Date: 03/04/2025 Staff Ordering Physician: Erin, Eloisa LEE Attending Provider: Erin, Eloisa LEE Exercise Technologist: Vernell Serna RDCS Exercise Physician: Hans Sauceda DO Exam Type: CA stress test treadmill Study Info A treadmill exercise stress test was performed. Summary 1. 1. Negative Lalo exercise stress test for ischemic ST changes by ECG criteria. 2. 2. Good functional capacity, achieving 12 METs of workload. 3. 3. Appropriate HR response to exercise. 4. 4. Appropriate HR recovery at 1 minute post exercise. 5. 5. No imaging with stress testing. 6. 6. Patient informed of the above results. Protocol: Lalo Stress ECG Details Stage: REST Duration (min): 2 min : 17 sec Speed (mph): 0.0 Grade (%): 0 HR (bpm): 74 SBP (mmHg): 139 DBP (mmHg): 88 METS: --- Stage: REST Duration (min): 22 min : 9 sec Speed (mph): 0.0 Grade (%): 0 HR (bpm): 96 SBP (mmHg): 139 DBP (mmHg): 88 METS: --- Stage: STAGE 1 Duration (min): 1 min : 0 sec Speed (mph): 1.7 Grade (%): 10 HR (bpm): 113 SBP (mmHg): 139 DBP (mmHg): 88 METS: --- Stage: STAGE 1 Duration (min): 2 min : 0 sec Speed (mph): 1.7 Grade (%): 10 HR (bpm): 108 SBP (mmHg): 139 DBP (mmHg): 88 METS: --- Stage: STAGE 1 Duration (min): 3 min : 0 sec Speed (mph): 1.7 Grade (%): 10 HR (bpm): 114 SBP (mmHg): 152 DBP (mmHg): 68 METS: --- Stage: STAGE 2 Duration (min): 1 min : 0 sec Speed (mph): 2.5 Grade (%): 12 HR (bpm): 135 SBP (mmHg): 152 DBP (mmHg): 68 METS: --- Stage: STAGE 2 Duration (min): 2 min : 0 sec Speed (mph): 2.5 Grade (%): 12 HR (bpm): 143 SBP (mmHg): 193 DBP (mmHg): 67 METS: --- Stage: STAGE 2 Duration (min): 3 min : 0 sec Speed (mph): 2.5 Grade (%): 12 HR (bpm): 147 SBP (mmHg): 193 DBP (mmHg): 67 METS: --- Stage: STAGE 3 Duration (min): 1 min : 0 sec Speed (mph): 3.4 Grade (%): 14 HR (bpm): 161 SBP (mmHg): 191 DBP (mmHg): 74 METS: --- Stage: STAGE 3 Duration (min): 2 min : 0 sec Speed (mph): 3.4 Grade (%): 14 HR (bpm): 162 SBP (mmHg): 191 DBP (mmHg): 74 METS: --- Stage: STAGE 3 Duration (min): 3 min : 0 sec Speed (mph): 3.4 Grade (%): 14 HR (bpm): 172 SBP (mmHg): 161 DBP (mmHg): 94 METS: --- Stage: STAGE 4 Duration (min): 1 min : 0 sec Speed (mph): 4.2 Grade (%): 16 HR (bpm): 186 SBP (mmHg): 161 DBP (mmHg): 94 METS: --- Stage: STAGE 4 Duration (min): 1 min : 0 sec Speed (mph): 4.2 Grade (%): 16 HR (bpm): 186 SBP (mmHg): 161 DBP (mmHg): 94 METS: --- Stage: RECOVERY Duration (min): 0 min : 59 sec Speed (mph): 0.0 Grade (%): 0 HR (bpm): 151 SBP (mmHg): 178 DBP (mmHg): 77 METS: --- Stage: RECOVERY Duration (min): 1 min : 59 sec Speed (mph): 0.0 Grade (%): 0 HR (bpm): 111 SBP (mmHg): 178 DBP (mmHg): 77 METS: --- Stage: RECOVERY Duration (min): 2 min : 59 sec Speed (mph): 0.0 Grade (%): 0 HR (bpm): 101 SBP (mmHg): 178 DBP (mmHg): 77 METS: --- Stage: RECOVERY Duration (min): 3 min : 18 sec Speed (mph): 0.0 Grade (%): 0 HR (bpm): 94 SBP (mmHg): 143 DBP (mmHg): 80 METS: --- Rest HR: 96 bpm Peak HR: 186 bpm Rest Sys BP: 139 mmHg Peak Sys BP: 193 mmHg Max Pred HR: 188 bpm % Max Pred HR: 99 % Target HR: 160 bpm Max RPP: 35,898 bpm*mmHg Lindquist Score: 5 Termination Reason: Reached target heart rate or workload Cardiac Symptoms: Shortness of breath Max ST Seg Deviation: 1.10 mm Total Time: 10 min : 0 sec Rest Sethi BP: 88 mmHg Peak Sethi BP: 67 mmHg Angina Score: None Total METS: 12.1 Resting ECG Sinus rhythm. Stress ECG No ST changes. Arrhythmias None. Report Signatures
--- OUTSIDE RECORDS SUMMARY | 2025-03-04 11:19 | XMS_ITS | Data Portability ---
Author Organization [facility] Address [address] [place] [address] Care Team Providers Care Dinkey Mechanic Name Role Phone CODIEDAVONTE MEJIA Primary Care Provider Unavailab le Assessment No assessment recorded. Plan of Treatment Reminders Order Date Submit Date Provider Last Modified By Organization Details Last Modified Time Details Appointments None recorded. Lab CMP, serum or plasma 2024 025 [facility], [address] [place] [address], [address], 13:12:30 CBC w/ auto diff 2024 025 [facility], [address] [place] [address], [address], 13:12:35 lipid panel, serum 2024 025 [facility], [address] [place] [address], [address], 13:12:28 cobalamin and folate panel, serum 2024 025 [facility], [address] [place] [address], [address], 13:12:31 vitamin D, 25-hydroxy , total, serum 2024 025 [facility], [address] [place] [address], [address], 13:12:37 magnesium, serum or plasma 2024 025 [facility], [address] [facility], [facility] [address], [place], [address], 13:12:33 HbA1c (hemoglobi n A1c), blood 2024 025 [facility], [address] [facility], [facility] [address], [place], [address], 13:12:32 insulin, serum 2024 025 [facility], [address] [facility], [facility] [address], [place], [address], 13:12:34 TSH + free T4, serum 2024 025 [facility], [address] [facility], [facility] [address], [place], [address], 13:12:29 Referral None recorded. Procedures None recorded. Surgeries None recorded. Imaging exercise stress test 2024 025 [facility] (Cardiology & Emg), [address] [place] [address] [place] [address], [id number], 16:20:37 US, echocardio gram, transthora cic, complete, w/ color flow [address] [facility] (Cardiology & Emg), [address] [place] [address] [address], [place], [address], 5 11:18:51 electrocar diogram 2024 025 [email or web address] In-Office Order, Internal Use Only DO Not Attach Compendium DO Not Attach Compendium, Do Not Delete/merge, [id number] 16:04:41 Medication Orders None recorded. Patient TargetsNo targets recorded. Patient InstructionsNo instructions recorded. Reason for Referral None Reported. Results Created Date Observation Date Name Description Value Unit Range Abnormal Flag Note LastModifiedBy Organization Detail LastModifiedTime 02/25/20 25 02/25/2025 LIPID PANEL W/ CHOL/ HDL RATIO cholesterol, total 233 mg/dL 100-19 9 above high normal Not Available [facility] ([facility]) [address] [facility], [place], [address], 02/25/2025 13:12:28 02/25/20 25 02/25/2025 LIPID PANEL W/ CHOL/ HDL RATIO triglyceride s 176 mg/dL 0-149 above high normal Not Available [facility] ([facility]) [address] [place], [address], 02/25/2025 13:12:28 02/25/20 25 02/25/2025 LIPID PANEL W/ CHOL/ HDL RATIO HDL cholesterol 47 mg/dL >39 Not Available [facility] ([facility]) [address] [place], [address], 02/25/2025 13:12:28 02/25/20 25 02/25/2025 LIPID PANEL W/ CHOL/ HDL RATIO VLDL cholesterol jaimee 32 mg/dL 5-40 Not Available [facility] ([facility]) [address] [place], [address], 02/25/2025 13:12:28 02/25/20 25 02/25/2025 LIPID PANEL W/ CHOL/ HDL RATIO LDL chol calc ([facility]) 154 mg/dL 0-99 above high normal Not Available [facility] ([facility]) [address] [place], [address], 02/25/2025 13:12:28 02/25/20 25 02/25/2025 LIPID PANEL W/ CHOL/ HDL RATIO T. chol/HDL ratio 5.0 ratio 0.0-4. 4 above high normal T. Chol/ HDL Ratio Men Women 1/2 Avg.R isk 3.4 3.3 Avg.R isk 5.0 4.4 2X Avg.R isk 9.6 7.1 3X Avg.R isk 23.4 11.0 Not Available [facility] ([facility]) [address] [facility] [place], [address], 02/25/2025 13:12:28 02/25/20 25 02/25/2025 TSH+F REE T4 TSH 1.430 uIU/m L 0.450- 4.500 Not Available [facility] ([facility]) [address] [facility] [place], [address], 02/25/2025 13:12:29 02/25/20 25 02/25/2025 TSH+F REE T4 T4,free(dire ct) 1.09 NG/dL 0.82-1 .77 Not Available [facility] ([facility]) [address] [facility] [place], [address], 02/25/2025 13:12:29 02/25/20 25 02/25/2025 COMP. METAB OLIC PANEL (14) glucose 90 mg/dL 70-99 Not Available [facility] ([facility]) [address] [facility] [place], [address], 02/25/2025 13:12:30 02/25/20 25 02/25/2025 COMP. METAB OLIC PANEL (14) BUN 13 mg/dL 6-20 Not Available [facility] ([facility]) [address] [facility] [place], [address], 02/25/2025 13:12:30 02/25/20 25 02/25/2025 COMP. METAB OLIC PANEL (14) creatinine 0.69 mg/dL 0.57-1 .00 Not Available [facility] ([facility]) [address] [facility] [place], [address], 02/25/2025 13:12:30 02/25/20 25 02/25/2025 COMP. METAB OLIC PANEL (14) eGFR 118 mL/mi n/1.7 3 >59 Not Available [facility] ([facility]) [address] [facility] [place], [address], 02/25/2025 13:12:30 02/25/20 25 02/25/2025 COMP. METAB OLIC PANEL (14) BUN/creatini ne ratio 19 9-23 Not Available [facility] ([facility]) [address] [facility], [place], [address], 02/25/2025 13:12:30 02/25/20 25 02/25/2025 COMP. METAB OLIC PANEL (14) sodium 140 mmol/ L 134-14 4 Not Available [facility] ([facility]) [address] [facility], [place], [address], 02/25/2025 13:12:30 02/25/20 25 02/25/2025 COMP. METAB OLIC PANEL (14) potassium 4.8 mmol/ L 3.5-5. 2 Not Available [facility] ([facility]) [address] [facility], [place], [address], 02/25/2025 13:12:30 02/25/20 25 02/25/2025 COMP. METAB OLIC PANEL (14) chloride 101 mmol/ L 96-106 Not Available [facility] ([facility]) [address] [facility], [place], [address], 02/25/2025 13:12:30 02/25/20 25 02/25/2025 COMP. METAB OLIC PANEL (14) carbon dioxide, total 24 mmol/ L 20-29 Not Available [facility] ([facility]) [address] [place], [address], 02/25/2025 13:12:30 02/25/20 25 02/25/2025 COMP. METAB OLIC PANEL (14) calcium 9.5 mg/dL 8.7-10 .2 Not Available [facility] ([facility]) [address] [facility], [place], [address], 02/25/2025 13:12:30 02/25/20 25 02/25/2025 COMP. METAB OLIC PANEL (14) protein, total 7.6 g/dL 6.0-8. 5 Not Available [facility] ([facility]) [address] [place], [address], 02/25/2025 13:12:30 02/25/20 25 02/25/2025 COMP. METAB OLIC PANEL (14) albumin 4.9 g/dL 3.9-4. 9 Not Available [facility] ([facility]) [address] [place], [address], 02/25/2025 13:12:30 02/25/20 25 02/25/2025 COMP. METAB OLIC PANEL (14) globulin, total 2.7 g/dL 1.5-4. 5 Not Available [facility] ([facility]) [address] [place], [address], 02/25/2025 13:12:30 02/25/20 25 02/25/2025 COMP. METAB OLIC PANEL (14) bilirubin, total 0.4 mg/dL 0.0-1. 2 Not Available [facility] ([facility]) [address] [place], [address], 02/25/2025 13:12:30 02/25/20 25 02/25/2025 COMP. METAB OLIC PANEL (14) alkaline phosphatase 78 IU/L 44-121 Not Available [facility] ([facility]) [address] [place], [address], 02/25/2025 13:12:30 02/25/20 25 02/25/2025 COMP. METAB OLIC PANEL (14) AST (SGOT) 16 IU/L 0-40 Not Available [facility] ([facility]) [address] [place], [address], 02/25/2025 13:12:30 02/25/20 25 02/25/2025 COMP. METAB OLIC PANEL (14) ALT (SGPT) 19 IU/L 0-32 Not Available [facility] ([facility]) [address] [place], [address], 02/25/2025 13:12:30 02/25/20 25 02/25/2025 VITAM IN B12 AND FOLAT E vitamin B12 543 pg/mL 232-12 45 Not Available [facility] ([facility]) [address] [place], [address], 02/25/2025 13:12:31 02/25/20 25 02/25/2025 VITAM IN B12 AND FOLAT E folate (folic acid), serum 15.3 NG/mL >3.0 A serum folat e bill ntrat ion of less than 3.1 ng/mL is consi dered to repre sent clini jaimee defic iency . Not Available [facility] ([facility]) [address] [place], [address], 02/25/2025 13:12:31 02/25/20 25 02/25/2025 HEMOG LOBIN A1C hemoglobin A1C 5.2 % 4.8-5. 6 Predi abete s: 5.7 - 6.4 Diabe kevin: >6.4 Glyce francis contr ol for adult s with diabe kevin: <7.0 Not Available [facility] ([facility]) [address] [place], [address], 02/25/2025 13:12:32 02/25/20 25 02/25/2025 MAGNE SIUM magnesium 2.0 mg/dL 1.6-2. 3 Not Available [facility] ([facility]) [address] [place], [address], 02/25/2025 13:12:33 02/25/20 25 02/25/2025 INSUL IN insulin 16.1 uIU/m L 2.6-24 .9 Not Available [facility] ([facility]) [address] [place], [address], 02/25/2025 13:12:34 02/25/20 25 02/25/2025 CBC WITH DIFFE RENTI AL/PL ATELE T WBC 5.3 x10e3 /uL 3.4-10 .8 Not Available [facility] ([facility]) [address] [facility], [place], [address], 02/25/2025 13:12:35 02/25/20 25 02/25/2025 CBC WITH DIFFE RENTI AL/PL ATELE T RBC 4.90 x10e6 /uL 3.77-5 .28 Not Available [facility] ([facility]) [address] [place], [address], 02/25/2025 13:12:35 02/25/20 25 02/25/2025 CBC WITH DIFFE RENTI AL/PL ATELE T hemoglobin 14.7 g/dL 11.1-1 5.9 Not Available [facility] ([facility]) [address] [facility], [place], [address], 02/25/2025 13:12:35 02/25/20 25 02/25/2025 CBC WITH DIFFE RENTI AL/PL ATELE T hematocrit 45.8 % 34.0-4 6.6 Not Available [facility] ([facility]) [address] [place], [address], 02/25/2025 13:12:35 02/25/20 25 02/25/2025 CBC WITH DIFFE RENTI AL/PL ATELE T MCV 94 fL 79-97 Not Available [facility] ([facility]) [address] [place], [address], 02/25/2025 13:12:35 02/25/20 25 02/25/2025 CBC WITH DIFFE RENTI AL/PL ATELE T MCH 30.0 pg 26.6-3 3.0 Not Available [facility] ([facility]) [address] [place], [address], 02/25/2025 13:12:35 02/25/20 25 02/25/2025 CBC WITH DIFFE RENTI AL/PL ATELE T MCHC 32.1 g/dL 31.5-3 5.7 Not Available [facility] ([facility]) [address] [facility], [place], [address], 02/25/2025 13:12:35 02/25/20 25 02/25/2025 CBC WITH DIFFE RENTI AL/PL ATELE T RDW 11.8 % 11.7-1 5.4 Not Available [facility] ([facility]) [address] [facility], [place], [address], 02/25/2025 13:12:35 02/25/20 25 02/25/2025 CBC WITH DIFFE RENTI AL/PL ATELE T platelets 231 x10e3 /uL 150-45 0 Not Available [facility] ([facility]) [address] [facility], [place], [address], 02/25/2025 13:12:35 02/25/20 25 02/25/2025 CBC WITH DIFFE RENTI AL/PL ATELE T neutrophils 63 % notest ab. Not Available [facility] ([facility]) [address] [facility], [place], [address], 02/25/2025 13:12:35 02/25/20 25 02/25/2025 CBC WITH DIFFE RENTI AL/PL ATELE T lymphs 27 % notest ab. Not Available [facility] ([facility]) [address] [facility], [place], [address], 02/25/2025 13:12:35 02/25/20 25 02/25/2025 CBC WITH DIFFE RENTI AL/PL ATELE T monocytes 7 % notest ab. Not Available [facility] ([facility]) [address] [facility], [place], [address], 02/25/2025 13:12:35 02/25/20 25 02/25/2025 CBC WITH DIFFE RENTI AL/PL ATELE T eos 2 % notest ab. Not Available [facility] ([facility]) [address] [facility], [place], [address], 02/25/2025 13:12:35 02/25/20 25 02/25/2025 CBC WITH DIFFE RENTI AL/PL ATELE T basos 1 % notest ab. Not Available [facility] ([facility]) [address] [facility], [place], [address], 02/25/2025 13:12:35 02/25/20 25 02/25/2025 CBC WITH DIFFE RENTI AL/PL ATELE T neutrophils (absolute) 3.4 x10e3 /uL 1.4-7. 0 Not Available [facility] ([facility]) [address] [facility], [place], [address], 02/25/2025 13:12:35 02/25/20 25 02/25/2025 CBC WITH DIFFE RENTI AL/PL ATELE T lymphs (absolute) 1.5 x10e3 /uL 0.7-3. 1 Not Available [facility] ([facility]) [address] [facility], [place], [address], 02/25/2025 13:12:35 02/25/20 25 02/25/2025 CBC WITH DIFFE RENTI AL/PL ATELE T monocytes(ab solute) 0.4 x10e3 /uL 0.1-0. 9 Not Available [facility] ([facility]) [address] [place], [address], 02/25/2025 13:12:35 02/25/20 25 02/25/2025 CBC WITH DIFFE RENTI AL/PL ATELE T eos (absolute) 0.1 x10e3 /uL 0.0-0. 4 Not Available [facility] ([facility]) [address] [place], [address], 02/25/2025 13:12:35 02/25/20 25 02/25/2025 CBC WITH DIFFE RENTI AL/PL ATELE T baso (absolute) 0.0 x10e3 /uL 0.0-0. 2 Not Available [facility] ([facility]) [address] [facility], [place], [address], 02/25/2025 13:12:35 02/25/20 25 02/25/2025 CBC WITH DIFFE RENTI AL/PL ATELE T immature granulocytes 0 % notest ab. Not Available [facility] ([facility]) [address] [facility], [place], [address], 02/25/2025 13:12:35 02/25/20 25 02/25/2025 CBC WITH DIFFE RENTI AL/PL ATELE T immature grans (abs) 0.0 x10e3 /uL 0.0-0. 1 Not Available [facility] ([facility]) [address] [facility], [place], [address], 02/25/2025 13:12:35 02/25/2002/25/2025 VITAM IN D, 25-HY [...] Leslie pritchett [place]: The [facility]io n[facility] Press . 2. Anthony wilkerson MF, [place], Bisch off-F errar i JACOBO, et al. Evalu ation , treat ment, and preve ntion of vitam in D defic iency : an Endoc rine Socie ty clini jaimee pract ice guide line. JCEM. 2010; 96(7) :1911 -30. Not Available [facility] ([facility]) [address], [place], [address], 02/25/2025 13:12:37 02/26/20 25 02/25/2025 elect malik shaffergr am No observ ation record ed. JEFF In-Office Order Internal Use Only DO Not Attach Compendium DO Not Attach Compendium, Do Not Delete/merge, [id number] 02/25/2025 16:32:54 Result Notes None recorded. Problems Name Problem SNOMED Code Status Onset Date Resolution Date Notes Provider Name and Address Organization Details Recorded Time Body mass index 30+ - obesity 449834932 Active 025 Roro Guerra [place] null, [place] [facility] [place] 14:54:07 Problem Notes None recorded. Procedures Surgical History Date Name Laterality Status Provider Name and Address Organization Details Recorded Time Tonsillectomy completed Roro Guerra [place] [facility] 02/17/2025 16:08:33 Imaging Results Imaging Date Name Status LastModified by Organization Details LastModified Time 02/25/2025 electrocardiogram completed JEFF In-Offi ce Order Internal Use Only DO Not Attach Compendium DO Not Attach Compendium, Do Not Delete/merge, [id number] 02/25/2025 16:32:54 Procedure Notes None recorded. Medical [...] Address Organization Details Last Updated DateTime 5 16903.8 1 g 33.5 kg/m2 168.28 cm 18 /min 98 % 98 % 89 /min 122 mm[Hg] 80 mm[Hg] Roro Guerra MA [facility] 14:55:27 Social History Question Answer Notes LastModified by Organizat ion Details LastModified Time Tobacco Smoking Status Never Smoker Roro Guerra MA null, [facility] 02/17/2025 16:09:38 Do You Have An [...] Skin Problems N Anemia N Heart Attack ([place]) N Anxiety Disorder N Diabetes N Muscle, [...] SNOMED-CT Code Diagnosis ICD10 Code Diagnosis Note [id number] Ramo Medellin MD [facility] [address] [place] [address] 02/17/2025 14:33:09 02/17/2025 16:08:21 Body mass index 30+ - obesity 238453719 Z68.33 Atypical chest pain 1025 37010 R07.89 EKG in the office is stable with normal sinus rhythm at a heart rate of 71. Because she does have an atypical chest pain that is often times exertional in nature on the left side of the chest we will refer her for a routine treadmill stress test and also a complete echo Doppler. Check routine labs fasting Cholesterol screening 27 3112025 Z13.220 Diabetes m ellitus screening 149289523 Z13.1 Long-term current use of drug therapy 573391265 Z79.899 Fatigue 54930713 R53.83 Health Concerns Section Related Observation LastModified by Organization Detai ls LastModified Time None Recorded Concern Status LastModified by Organization Details LastModified Time None Recorded Advance Directives Directive N: Payers Encounter Date Sequence Insurance Name Policy Number Policy Carmen Covered Member ID Carmen Member ID Guarantor Name 02/17/2025 1 [place] [id number] Tyesha Mckinley [id number] Tyesha Mckinley Notes Date Note Type [...] associated dizziness GUSTAVO Jensen Attn: Accounting,[address] [facility], [place], [address], [facility] - [facility] 02/25/2025 16:04:59 OBGyn Episode No OBEpisode recorded.
== END 2025-03-04 11:07 | disposition home or self-care (01) ==
PROVIDERS: PCP Physician Assistant; Visit Provider Physician Assistant
DX: R07.89 Other chest pain (principal)
CPT/HCPCS: 93017

== ENCOUNTER 2025-04-21 14:43 | Emergency (ER) | payer BC, SELFPAY ==
--- NOTE | ~2025-04-21 | XR_ITS ---
CHEST RADIOGRAPH, PA AND LATERAL CLINICAL HISTORY: chest pain INTERMITTENTLY X MONTHS . COMPARISON: None available TECHNIQUE: PA and lateral views of the chest. FINDINGS The cardiomediastinal silhouette is unremarkable. The lungs are clear. IMPRESSION: No focal infiltrate or effusion. Reviewed, dictated and finalized at location A.
--- NOTE | 2025-04-21 14:46 | ECG_ITS ---
Test Date: 2025-04-21 14:58:33 Measurements Intervals [place] Rate: 82 P: 37 VT: 171 QRS: 54 QRSD: 81 T: 26 QT: 368 QTc: 431 Interpretive Statements SINUS RHYTHM NORMAL ECG No previous ECG available for comparison Electronically Signed On 04-21-2025 16:24:21 CDT by Hans Sauceda D.O.
[2025-04-21 14:56] VITALS: BP 122/77; PULSE 77; RESP 18; TEMP 36.3; O2SAT 100
[2025-04-21 15:04] LABS: Basophils Percent Auto 0.5 % (0.2-1.2); Eosinophils Absolute Auto 0.1 K/mm3 (0-0.3); Eosinophils Percent Auto 1.7 % (0-4.4); Hematocrit 41.9 % (37.0-47.0); Hemoglobin 13.8 g/dL (12.0-15.0); Immature Granulocyte Absolute 0.03 K/mm3 (0.00-0.031); Immature Granulocyte Percent A 0.4 % (0-0.5); Lymphocytes Absolute Auto 2.56 K/mm3 (0.9-3.2); Lymphocytes Percent Auto 32.9 % (18.3-44.2); Mean Corpuscular HGB Conc 32.9 g/dl (32-36); Mean Corpuscular Hemoglobin 30.1 pg (26-34); Mean Corpuscular Volume 91.5 fl (80-100); Mean Platelet Volume 9.3 fl (7.4-10.4); Monocytes Absolute Auto 0.4 K/mm3 (0.1-0.6); Monocytes Percent Auto 5.5 % (2.6-8.5); Neutrophils Absolute Auto 4.6 K/mm3 (1.3-6.7); Platelet Count Result 219 k/mm3 (150-375); Red Blood Count 4.58 M/mm3 (4.2-5.4); Red Cell Distribution Width 12.2 % (11.5-14.5); White Blood Count 7.8 K/mm3 (4.5-10.0)
[2025-04-21 15:14] LABS: Prothrombin Time 12.7 Seconds (11.1-14.7)
[2025-04-21 15:15] LABS: Alanine Aminotransferase 18 U/L (6-35); Alkaline Phosphatase 55 U/L (38-126); Anion Gap 12 mmol/L (4-12); Aspartate Amino Transferase 24 U/L (14-36); Bilirubin,Total 0.6 mg/dL (0.2-1.3); Blood Urea Nitrogen 13 mg/dL (7-17); Calcium 9.5 mg/dL (8.4-10.2); Carbon Dioxide 26 mmol/L (22-30); Chloride 102 mmol/L (98-107); Estimated CRCL calculation 113 ml/min; Estimated Glomerular Filt Rate > 60; Glucose 109 mg/dL (65-110); Lipase 94 U/L (23-300); Partial Thromboplastin Time 23.7 Seconds (22.3-36.8); Potassium 4.1 mmol/L (3.4-5.0); Sodium 140 mmol/L (137-145); Total Protein 8.3 g/dL (6.3-8.2)
[2025-04-21 15:26] LABS: Troponin I < 0.012 ng/mL (0.000-0.034)
--- NOTE | 2025-04-21 17:28 | ED_ITS ---
HPI - Chest Pain General Chief Complaint: Chest Pain Stated Complaint: CHEST PAIN WITH RADIATION TO NECK Time Seen by Provider: 04/21/25 17:11 Source: patient and family (Mother) Mode of arrival: ambulatory Limitations: no limitations History of Present Illness HPI narrative: 34-year-old female presents with Left-sided chest pain. She notes that she has experienced this before starting 6 months ago although that time it seemed intermittent and today became constant. She describes sharp, radiating to neck. Worse with deep breaths. This episode started while she was running on the treadmill. She experienced pain and palpations since this exercise. Primary care physician who helped arrange for her to have an echo and stress test recently which she states were negative. She denies any edema. No cough or hemoptysis. She had stopped her control already a few months ago. She denies any shortness of breath, paresthesias, nausea, vomiting, or diaphoresis. Does not follow with a physician relations manager. Cardiac risk factors HTN:0 HLD:0 DM:0 Obese: Yes Smoker:No Personal history CO/TIA/CVA: No Fam Hx CO in first degree relative <65yo: No (father >65yo and other family members were grandparents - not first degree relatives) Related Data Home Medications ?Medication ?Instructions ?Recorded ?Confirmed ?Last Taken ?Type spironolactone 50 mg tablet 50 mg PO DAILY 07/15/21 07/15/21 Unknown History Allergies Allergy/AdvReac Type Severity Reaction Status Date / Time clarithromycin Allergy Unknown Unknown Verified 09/12/23 12:47 clindamycin Allergy Unknown Unknown Verified 09/12/23 12:47 erythromycin base Allergy Unknown Unknown Verified 09/12/23 12:47 Sulfa (Sulfonamide Allergy Unknown Unknown Verified 09/12/23 12:47 Antibiotics) [facility] Past Medical History Medical History Patient denies significant medical history Family History Family History Grandparent Diabetes mellitus Acute myocardial infarction Father Acute myocardial infarction, Onset Age: 66 History of heart artery stent, Onset Age: 66 Social History Social History Smoking status: Never smoker Alcohol intake: current Living arrangements: with family Additional living arrangements comments: children Exam 2 Narrative: GENERAL: Well-appearing, well-nourished, and in no acute distress. HEAD: Normocephalic, atraumatic. EYES: Non injected, non icteric ENT: Nares clear, no rhinorrhea or epistaxis. Gross auditory acuity intact. NECK: Supple. No meningismus. CHEST: Speaking in full sentences. No respiratory distress. Pain not reproducible with palpation. Lungs clear to auscultation bilaterally without wheezes or crackles or consolidation. HEART: Regular rate and rhythm. . ABDOMEN: Soft, nondistended. No rigidity or guarding. Not peritoneal EXTREMITIES: Normal range of motion. No bilateral lower extremity edema. SKIN: Warm, dry, no rash. NEURO: No focal deficits. Alert and oriented. Answering questions. Following commands. Normal speech without aphasia or dysarthria. PSYCH: Normal mood and affect. Course Vital Signs Vital signs: Vital Signs Temperature 97.3 F L 04/21/25 14:56 Pulse Rate 77 04/21/25 14:56 Respiratory Rate 18 04/21/25 14:56 Blood Pressure 122/77 04/21/25 14:56 Pulse Oximetry 100 04/21/25 14:56 Oxygen Delivery Room Air 04/21/25 14:56 Temperature 97.3 F L 04/21/25 14:56 Pulse Rate 75 04/21/25 17:55 Respiratory Rate 22 H 04/21/25 17:55 Blood Pressure 131/65 04/21/25 17:55 Pulse Oximetry 98 04/21/25 17:55 Oxygen Delivery Room Air 04/21/25 17:31 MDM - Chest Pain MDM Narrative Medical decision making narrative: Patient presents with left-sided chest pain. She had been experiencing this intermittently over the past 6 months and has already undergone echo and stress test which were reportedly negative. Symptoms started again while running on treadmill and have been constant today. In the emergency department they are afebrile with vital signs within normal limits. Dimer mildly elevated but PERC Rule Age greater than or equal to 50: 0 HR greater than or equal to 100:0 O2 sat room air <95%:0 Unilateral leg swellin Hemoptysis:0 Recent surgery or trauma less than 4 wks ago requiring tx with general anesthesia:0 Prior PE or DVT:0 Hormone use (OCP, HRT or estrogenic hormone use in M/F patients): [address] PE imaging. HEART SCORE History 2 highly suspicious 1 moderately suspicious 0 slightly suspicious History score [address] depression/elevation not due to LBBB, LVH, or digoxin [address] depression but LBBB, LVH, nonspecific repolarization changes 0 normal ECG score 0 Age 2 >/= 65 1 45-64 0 <45 Age score 0 Risk factors (HTN, hypercholesterolemia, DM, obesity with BMI >30, current smoker or cessation </=3mo), positive fam hx with parent or sibling with CVD before age 65, atherosclerotic disease (prior CO, PCI/CABG, CVA/TIA, or peripheral arterial disease) 2 >/= 3 risk factors or history of atherosclerotic dz 1 - 1-2 risk factors 0 no known risk factors Risk factor score 1 Initial Troponin 2 >3 times normal limit 1 1-3 times normal limit 0 less than or equal to normal limit Troponin score 0 Total HEART Score 1. Repeat troponin normal. Patient reassessed at bedside. We discussed her workup and causes that had been ruled out/deemed very unlikely. Patient does seem frustrated as she thought she would undergo CT scan. We discussed that her HEART score is low which means appropriate next steps include following up with a physician relations manager. Noted that they may recommend event monitor versus alternative work up but her risk of MACE is otherwise low. Patient declines analgesic medication. Discharged in otherwise stable condition. Differential Diagnosis Differential diagnosis: Likely pneumothorax, stable angina, unstable angina pectoris, atypical chest pain, st elevation myocardial infarction, costochondritis, chest pain and biliary colic Medical Records Data Attestation: I reviewed the patient's medical records. Medical records narrative: Echo performed February 2025 Summary 1. Left ventricular chamber dimension is normal. 2. Left ventricular systolic function is normal, estimated at 65-70%. 3. The left ventricular diastolic function is normal. 4. Right ventricular systolic function is normal. 5. No significant valvular disease. Stress test 03/04/2025 Summary 1. 1. Negative Lalo exercise stress test for ischemic ST changes by ECG criteria. 2. 2. Good functional capacity, achieving 12 METs of workload. 3. 3. Appropriate HR response to exercise. 4. 4. Appropriate HR recovery at 1 minute post exercise. 5. 5. No imaging with stress testing. 6. 6. Patient informed of the above results. Lab Data Attestation: I reviewed the patient's lab results. 04/21/25 14:56 04/21/25 14:56 Labs: Lab Results 04/21/25 04/21/25 Range/Units 14:56 17:39 WBC 7.8 (4.5-10.0) K/mm3 RBC 4.58 (4.2-5.4) M/mm3 Hgb 13.8 (12.0-15.0) g/dL Hct 41.9 (37.0-47.0) % MCV 91.5 (80-100) fl MCH 30.1 (26-34) pg MCHC 32.9 (32-36) g/dl RDW 12.2 (11.5-14.5) % Plt Count 219 (150-375) k/mm3 MPV 9.3 (7.4-10.4) fl Immature Gran % (Auto) 0.4 (0-0.5) % Neut % (Auto) 59.0 (45.5-73.1) % Lymph % (Auto) 32.9 (18.3-44.2) % [place] % (Auto) 5.5 (2.6-8.5) % Eos % (Auto) 1.7 (0-4.4) % Baso % (Auto) 0.5 (0.2-1.2) % Lymph # (Auto) 2.56 (0.9-3.2) K/mm3 [place] # (Auto) 0.4 (0.1-0.6) K/mm3 Eos # (Auto) 0.1 (0-0.3) K/mm3 Baso # (Auto) 0.0 (0.0-0.1) K/mm3 Abs Immat Gran (auto) 0.03 (0.00-0.031) K/mm3 Absolute Neuts (auto) 4.6 (1.3-6.7) K/mm3 Absolute Nucleated RBC 0.000 (0.0-0.012) K/mm3 Nucleated RBC % 0.0 (0.0-0.2) % PT 12.7 (11.1-14.7) Seconds INR 1.0 APTT 23.7 (22.3-36.8) Seconds D-Dimer 0.74 H (<0.48) ug/mL Sodium 140 (137-145) mmol/L Potassium 4.1 (3.4-5.0) mmol/L Chloride 102 (98-107) mmol/L Carbon Dioxide 26 (22-30) mmol/L Anion Gap 12 (4-12) mmol/L BUN 13 (7-17) mg/dL Creatinine 0.71 (0.7-1.0) mg/dL Estim Creat Clear Calc 113 ml/min Estimated GFR > 60 (59 - ) Glucose 109 (65-110) mg/dL Calcium 9.5 (8.4-10.2) mg/dL Total Bilirubin 0.6 (0.2-1.3) mg/dL AST 24 (14-36) U/L ALT 18 (6-35) U/L Alkaline Phosphatase 55 (38-126) U/L Troponin I < 0.012 < 0.012 (0.000-0.034) ng/mL Total Protein 8.3 H (6.3-8.2) g/dL Albumin 5.0 (3.5-5.1) g/dL Lipase 94 (23-300) U/L Imaging Data Radiologist's impression: Impressions Chest X-Ray 04/21/25 15:40 IMPRESSION: No focal infiltrate or effusion. ECG Data EKG #1: Attestation: I personally reviewed and interpreted this ECG as follows: ECG completion date: 04/21/25 ECG completion time: 14:58 Interpretation: Normal sinus rhythm at a rate of 82 beats per minute. MO interval 171. QRS 81. QT/QTC 368/407. Good R-wave progression across the precordial leads. T-wave inversion/flattening in lead 3 but otherwise upright in normal in contiguous inferior leads 2 and AVF. T-wave flattening in V3. No other T-wave inversions. Normal axis. EKG #2: Attestation: I personally reviewed and interpreted this ECG as follows: ECG completion date: 04/21/25 ECG completion time: 17:47 Interpretation: Normal sinus rhythm at a rate of 75 beats per minute. MO interval 174. QRS 78. QT/QTC 385/413. Good R-wave progression across the precordial leads. Normal axis. No T-wave inversions. Normal ECG. Discharge Plan Discharge Clinical Impression: Chest pain Patient Disposition: Home Condition: Stable Instructions: Antibiotic Form, Chest Pain (DC) Additional Instructions: No identifiable cause of your symptoms (normal chest xray, 2 normal EKGs, 2 normal cardiac enzymes). Your otherwise low risk however given this has been a repeated issue, I recommend follow up with cardiology. The name of a physician relations manager is listed below or your primary care provider can help arrange 1. Return to the emergency department with any new or worsening symptoms. Acetaminophen/Tylenol (maximum 4000 mg per day) is safe to take with NSAIDs (ibuprofen/Motrin) for pain relief. Patient Language: Syriac Prescriptions: New acetaminophen 500 mg capsule 1,000 mg PO Q6H PRN (Reason: pain) Qty: 30 0RF ibuprofen 600 mg tablet 600 mg PO TID PRN (Reason: pain) Qty: 30 0RF No Action spironolactone 50 mg tablet 50 mg PO DAILY ibuprofen [IBU] 600 mg tablet 600 mg PO Q6H PRN (Reason: pain) Qty: 20 0RF meclizine 25 mg tablet 25 mg PO BID PRN (Reason: dizziness) Qty: 20 0RF cyclobenzaprine 5 mg tablet 5 mg PO BID PRN (Reason: muscle spasm) 14 Days Qty: 14 0RF Follow-up/Referrals: Esteban Avitia MD [Physician] - (Cardiology) Erin,ROSA Amin [Primary Care Provider] - Stand Alone Forms: Work/School Release IP Time of Disposition: 18:35
--- NOTE | 2025-04-21 17:38 | ECG_ITS ---
Test Date: 2025-04-21 17:47:22 Measurements Intervals [place] Rate: 75 P: 37 SC: 174 QRS: 50 QRSD: 78 T: 35 QT: 385 QTc: 430 Interpretive Statements SINUS RHYTHM NORMAL ECG Compared to ECG 04/21/2025 14:58:33 No significant changes Electronically Signed On 04-21-2025 18:48:25 CDT by Hans Sauceda D.O.
[2025-04-21 17:53] LABS: D Dimer 0.74 ug/mL (<0.48)
[2025-04-21 17:55] VITALS: BP 131/65; PULSE 74; PULSE 75; RESP 22; O2SAT 98
[2025-04-21 18:23] LABS: Troponin I < 0.012 ng/mL (0.000-0.034)
== END 2025-04-21 19:17 | disposition home or self-care (01) ==
PROVIDERS: Emergency Medicine; Emergency Provider Student in an Organized Health Care Education/Training Program; PCP Physician Assistant
DX: R07.9 Chest pain, unspecified (principal)
CPT/HCPCS: 36415; 71046; 80053; 83690; 84484; 85025; 85380; 85610; 85730; 93005; 99284

== ENCOUNTER 2025-04-22 12:50 | Outpatient (CLI) | payer BC, SELFPAY ==
--- NOTE | ~2025-04-22 | CT_ITS ---
CTA chest Ordering provider: Eloisa KhanROSA History: 34 years Female with . elevated d-dimer . Comparison: None. Technique: CT angiogram chest was performed following timed intravenous injection of contrast. Thin s lice axial images and reformatted coronal images were obtained. Three dimensional reformatted images of the chest were also obtained using a [employer] workstation. . Automated exposure control and iterati ve reconstruction technique were employed. The dose-length product was 417.51 mGy-cm. 100 mL Omnipaqu e 350 was given IV. Findings: PULMONARY ARTERIES: No pulmonary embolus. VISUALIZED THORACIC INLET: Normal. MEDIASTINUM: Aorta/coronary arteries: The thoracic aorta is normal. Heart/other: The heart is not enlarged. Lymph nodes: No mediastinal or hilar adenopathy. LUNGS: No pulmonary nodules or masses. No infiltrates or effusions. No pneumothorax. Dependent atelectatic c hanges. VISUALIZED UPPER ABDOMEN: the visualized upper abdomen is normal. MUSCULOSKELETAL: Soft tissues: The superficial soft tissues are normal. Bones: Normal spine. IMPRESSION: 1. No pulmonary embolism. 2. No acute cardiopulmonary pathology. Reviewed, dictated and finalized at location A.
== END 2025-04-22 12:51 | disposition home or self-care (01) ==
PROVIDERS: PCP Physician Assistant; Visit Provider Physician Assistant
DX: R79.89 Other specified abnormal findings of blood chemistry (principal)
CPT/HCPCS: 71275; Q9967